=== PATIENT | male | born 1955 | race Caucasian/White ===

== ENCOUNTER 2022-04-05 12:20 | Day surgery (SDC) | payer OTHER ==
[~2022-04-05 12:20] MED LIST: Lactated Ringers 1,000 ML IV SCH; Lidocaine 1%/Sod Bicarbonate in NS 8.4% 1 ML Syringe IDERM PRN; Sodium Chloride 0.9% 10 ML Syringe FLUSH PRN; Sodium Chloride 0.9% 10 ML Syringe FLUSH SCH
[2022-04-05] MEDS ORDERED: Lidocaine 1% 2 ML ONE (12:50)
[2022-04-05] MEDS ORDERED: fentaNYL 100 MCG/2 ML SDV ONE (12:50)
[2022-04-05] MEDS ORDERED: Propofol 200 MG/20 ML SDV ONE ×2 (12:50→14:10)
[2022-04-05] MEDS ORDERED: Midazolam 1 MG/ML 2 ML SDV ONE (12:51)
== END 2022-04-05 15:17 | disposition home or self-care (01) ==
LOC: JD.SDS 12:20
PROVIDERS: ATTEND Surgery
DX: Z12.11 Encounter for screening for malignant neoplasm of colon (principal); D12.3 Benign neoplasm of transverse colon; D12.5 Benign neoplasm of sigmoid colon; D12.8 Benign neoplasm of rectum; K57.30 Diverticulosis of large intestine without perforation or abscess without bleeding; K64.8 Other hemorrhoids; Z86.010 Personal history of colon polyps; Z98.890 Other specified postprocedural states; Z86.16 Personal history of COVID-19; Z88.8 Allergy status to other drugs, medicaments and biological substances; Z87.891 Personal history of nicotine dependence
CPT/HCPCS: 45380; J2250; J2704; J3010; J7120; 00812